=== PATIENT | male | born 1965 | race Caucasian/White ===

== ENCOUNTER 2019-08-02 13:35 | Outpatient (CLI) | payer BC ==
--- NOTE | 2019-08-02 14:02 | RAD ---
Lumbar spine 4 views, flexion and extension HISTORY: Low back pain. FINDINGS: There are 5 lumbar type vertebrae. Mild leftward convex curvature on the frontal view. Pedi cles are intact. Mild physiologic wedging of the T12 superior endplate. There is osteophytosis throughout the vertebra l bodies and facets. At the L3-4 level, there is disc space narrowing. There is 0.6 cm spondylolisthesis on the neutral vi ew that increases to 1.0 cm on the flexion view and reduces to 0.3 cm on the extension view. Lateral views also show oblique lucency through the base of the pars interarticularis at the L3 level and step off of the cortex. Alignment are otherwise maintained. IMPRESSION : Grade 1 spondylolisthesis with abnormal translational motion at the L3-4 level, suggesting instabilit y.. 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 Mild degenerative changes present throughout the lumbar spine.
== END 2019-08-02 13:36 | disposition home or self-care (01) ==
LOC: BICRAD 13:35
PROVIDERS: ATTEND Neurological Surgery
DX: M54.40 Lumbago with sciatica, unspecified side (principal); M48.062 Spinal stenosis, lumbar region with neurogenic claudication; M47.816 Spondylosis without myelopathy or radiculopathy, lumbar region; M43.16 Spondylolisthesis, lumbar region; R93.7 Abnormal findings on diagnostic imaging of other parts of musculoskeletal system
CPT/HCPCS: 72110